=== PATIENT | female | born 1990 | race African-American/Black ===

== ENCOUNTER → 2021-12-19 | Outpatient (CLI) | payer OTHER ==
[2016-08-27 00:40] VITALS: BP 138/78
[~2021-12-19] MED LIST: TERA1CAP3 PO; TRAM-48 PO
--- NOTE | 2021-12-19 12:50 | KCIC ---
XR FOOT_LEFT 3 VIEWS DATE: 12/19/2021 12:26 PM INDICATION: Left foot pain a couple of weeks. COMPARISON: None. FINDINGS: Bones: There is no evidence of acute fracture or dislocation. Joints: The joint spaces are normal. Miscellaneous: None. IMPRESSION: No acute findings Electronically signed by: Aidan Treadwell MD (12/19/2021 12:47 PM) [id number]
== END ==
LOC: KCIC 12:22
PROVIDERS: ATTEND Nurse Practitioner Family
DX: M79.672 Pain in left foot (principal)
CPT/HCPCS: 73630